=== PATIENT | male | born 1980 | race Caucasian/White ===

== ENCOUNTER 2020-11-16 19:12 | Emergency (ER) | payer OTHER, SELFPAY ==
[2020-11-16 20:18] VITALS: BP 116/83; PULSE 84; RESP 20; TEMP 36.8; O2SAT 98; BMI 27.4
--- NOTE | 2020-11-16 20:27 | ECG_ITS ---
Test Reason : ANXIOUS Blood Pressure : / mmHG Vent. Rate : 080 BPM Atrial Rate : 080 BPM P-R Int : 122 ms QRS Dur : 112 ms QT Int : 384 ms P-R-T Axes : 050 019 036 degrees QTc Int : 442 ms Normal sinus rhythm with sinus arrhythmia Incomplete right bundle branch block Voltage criteria for left ventricular hypertrophy Abnormal ECG No previous ECGs available Referred By: Generic ED Physician Electronically Signed By:Durga Morgan
--- NOTE | 2020-11-16 21:13 | ED.GENADULT ---
HPI - General Adult General Chief complaint: General Medical Stated complaint: anxious Time Seen by Provider: 11/16/20 21:13 Source: patient Mode of arrival: ambulatory Limitations: no limitations History of Present Illness HPI narrative: Patient history of anxiety been feeling more anxious since 14:00 gas in his stomach hyperactive thinking too much not on medication do not have any psychiatrist patient feels increased stress from his job denies any depression or suicidal ideation Related Data Previous Rx's Medication Instructions Recorded lorazepam [Ativan] 1 mg PO BEDTIME PRN #10 tab 11/16/20 Allergies Allergy/AdvReac Type Severity Reaction Status Date / Time mushroom Allergy Hives Verified 11/16/20 20:17 Review of Systems Review of Systems: Constitutional : No Weight loss, No Fever, No Chills ENT/Mouth : No sore throat, No Rhinorrhea Eyes: No Eye Pain, No Swelling Cardiovascular : No Chest Pain, no palpitations Respiratory : No Cough, No Sputum, no shortness of breath Gastrointestinal : no Nausea, No Vomiting, No Diarrhea, No abdominal Pain, no black stools Genitourinary : No Dysuria, No Urinary Frequency Musculoskeletal : No joint pain, No Myalgias, No Joint Swelling Skin : No Skin Lesions, No rash Neuro : No Weakness, No Numbness, No Dizziness, No Headache Psych : ++Anxiety/Panic, No Depression Heme/Lymph: No Bruising, No Lymphadenopathy Endocrine : No Polyuria, No Polydipsia All other systems reviewed and are negative [facility] Social History Social History Advance Directives: No Advance Directives Information Provided: No Physical Exam Vital Signs: Vital Signs: Last Vital Signs Temp 98.3 F 11/16/20 20:18 Pulse 84 11/16/20 20:18 Resp 20 11/16/20 20:18 BP 116/83 11/16/20 20:18 Pulse Ox 98 11/16/20 20:18 Body Mass Index 27.4 Appearance: Alert. Oriented X3. No acute distress. Anxious Eyes: PERRLA, No Nystagmus ENT: Pharynx normal. Oral Mucosa moist Neck: Normal inspection. Neck supple. CVS: Normal heart rate and rhythm. Pulses normal. Respiratory: No respiratory distress. Equal air entry bilateral, no wheezing/rales/rhonchi Abdomen: Soft and nontender. Bowel sounds are present, no mass palpable, no CVA tenderness Skin: Skin warm and dry. Normal skin color. Normal skin turgor. Extremities: No lower extremity edema. No calf tenderness Neuro: Oriented X 3. No motor deficit. No sensory deficit Medical Decision Making MDM Narrative Medical decision making narrative: Patient with increased anxiety will give him Ativan for anxiety episodes advised to follow with PCP ECG Data Attestation: I personally reviewed and interpreted this ECG as follows: Interpretation: Normal sinus rhythm heart rate 80 beats per minute normal axis normal intervals and no acute ST T wave changes no acute ischemia Discharge Plan Discharge Clinical Impression: Anxiety Patient Disposition: Home, Self-Care Instructions: Anxiety (ED) Additional Instructions: Take medication as advised for anxiety follow with PCP Prescriptions: New lorazepam [Ativan] 1 mg tablet 1 mg PO BEDTIME PRN (Reason: anxiety) Qty: 10 RF: 0 Interventions: ED Discharge Assessment Last Done: 11/16/20 21:58 Discharge Date/Time: 11/16/20 21:59 Print Language: Sinhala
--- NOTE | 2020-11-16 21:25 | PC.NURSE ---
PT RESTING IN STRETCHER IN NAD, EKG OBTAINED PREVIOUSLY. PT AWAITING FOR MD TO EVAL. WILL CONTINUE TO MONITOR PT.
--- NOTE | 2020-11-16 21:44 | PC.NURSE ---
MD AT BEDSIDE FOR EVAL. PT MEDICATED PER EMAR.
[2020-11-16] MEDS: Magnesium Hydrox/Alum Hydrox 30 ML ORAL.SUSP PO (21:50)
== END 2020-11-16 21:59 | disposition home or self-care (01) ==
PROVIDERS: Emergency Provider Internal Medicine
DX: F41.9 Anxiety disorder, unspecified (principal); Z72.89 Other problems related to lifestyle; Z56.6 Other physical and mental strain related to work
CPT/HCPCS: 93005; 99283

== ENCOUNTER 2020-12-05 16:09 | Emergency (ER) | payer OTHER, SELFPAY ==
[2020-12-05 16:24] VITALS: BP 137/83; PULSE 70; RESP 16; TEMP 37.3; O2SAT 98; BMI 29.0
--- NOTE | 2020-12-05 18:38 | ED_ITS ---
HPI - General Adult General Chief complaint: Abdominal Pain Stated complaint: mutiple complaints Time Seen by Provider: 12/05/20 18:38 Source: patient, family and RN notes reviewed Mode of arrival: ambulatory Limitations: language barrier History of Present Illness HPI narrative: 40-year-old male with complaints of abdominal discomfort. Patient reports that the pain started about 3 hours ago prior to coming to the ER. Patient reports of diffuse abdominal pain negative for nausea, vomiting, diarrhea. Patient reports that he had a bowel movement this morning and had blood when he wiped. Patient reports that he has a history of hemorrhoids. He reports that he has been dealing with constipation for very long time. Does not have a PCP. Patient reports that he has been feeling very anxious since the pain started. Patient denies any other GI symptoms. Denies any CP, palpitations, presyncope, syncope. Related Data Previous Rx's Medication Instructions Recorded lorazepam [Ativan] 1 mg PO BEDTIME PRN #10 tab 11/16/20 hydrocortisone [Procto-Med HC] 1 appl SD DAILY PRN #30 g 12/05/20 lorazepam 0.5 mg PO BEDTIME PRN #5 tab 12/05/20 polyethylene glycol 3350 [Miralax] 17 g PO DAILY #238 g 12/05/20 Allergies Allergy/AdvReac Type Severity Reaction Status Date / Time mushroom Allergy Hives Verified 11/16/20 20:17 Review of Systems Review of Systems: Constitutional : No Weight loss, No Fever, No Chills, No Ni ght Sweats, No Fatigue, No Malaise ENT/Mouth : No Hearing loss, No Ear Pain, No Nasal Congestion, No Sinus Pain, No Hoarseness, No sore throat, No Rhinorrhea, No Swallowing Difficulty Eyes: No Eye Pain, No Swelling, No Redness, No Foreign Body, No Discharge, No Vision Changes Cardiovascular : No Chest Pain, No SOB, No Dyspnea on Exertion, No Orthopnea, No Edema, No Palpitations Respiratory : No Cough, No Sputum, No Wheezing, No Smoke Exposure, No Dyspnea Gastrointestinal : No Nausea, No Vomiting, No Diarrhea, No Constipation, No abdominal Pain, No Hematochezia, No Melena Genitourinary : no irregular bleeding, No Dysuria, No Urinary Frequency, No Hematuria, No Urinary Incontinence, No Urgency, No Flank Pain, No Urinary Flow Changes, No Hesitancy Musculoskeletal : No joint pain, No Myalgias, No Joint Swelling Skin : No Skin Lesions, No rash Neuro : No Weakness, No Numbness, No Paresthesias, No Loss of Consciousness, No Dizziness, No Headache Psych : No Anxiety/Panic, No Depression, No SI/HI/AH/VH, No Social Issues, Heme/Lymph: No Bruising, No Bleeding,No Lymphadenopathy Endocrine : No Polyuria, No Polydipsia, No Temperature Intolerance Yes all oth er systems are reviewed and are negative PMFSH Social History Social History Patient Tobacco Use Status: Never used Tobacco Use of substances other than those prescribed or required for medical reasons: No Advance Directives: No Advance Directives Information Provided: Yes Physical Exam Vital Signs: Vital Signs: Last Vital Signs Temp 98.8 F 12/05/20 19:14 Pulse 58 12/05/20 21:48 Resp 17 12/05/20 21:48 BP 122/82 12/05/20 21:48 Pulse Ox 98 12/05/20 21:48 Body Mass Index 29.0 Const: General: healthy appearing, no acute distress and well developed Nutritional Appearance: well nourished Orientation/consciousness: patient oriented x3 Neck: Neck: Yes normal visual inspection, Yes full ROM and Yes trachea midline Thyroid: Thyroid normal Resp: Auscultation: clear to auscultation bilaterally Cardio: Rate: regular rate Rhythm: regular rhythm GI: Inspection: Yes normal to inspection and No distended Palpation (GI): No hepatosplenomegaly present Auscultation: normal bowel sounds Skin: General skin exam: elasticity normal, turgor normal and dry skin Neuro: General: patient oriented x3 Course Course Course Narrative: 40-year-old male presents to emergency room for complaints of abdominal discomfort. Patient reports that the pain is diffuse and throughout the whole abdomen. Patient reports that he had blood when he wipes after having stool this morning. Patient has a history of hemorrhoids. Patient reported that he is very anxious because he gets those abdominal pains frequently. Patient reports that he does have a history of constipation. We will do basic lab work CBC to check for leukocytosis or anemia. CMP and lipase. I will give him GI cocktail and re-evaluate. Reevaluation(s) Reevaluation #1: Patient reports he is feeling much better after getting GI cocktail. Feeling little anxious about his symptoms. Will give him Ativan. Patient was encouraged to call to get a primary care provider. Reevaluation #2: Patient reports he is feeling much better he will be discharged home to follow-up with primary care physician. I will send him home with MiraLax and Anusol. I was send him home with 5 days worth of lorazepam. Patient verbalizes understanding and is agreeable to plan of care. He was given the opportunity to ask questions and all questions answered. Medical Decision Making Lab Data Result diagrams: 12/05/20 19:23 12/05/20 19:23 Labs: Lab Results 12/05/20 12/05/20 Range/Units 19:23 19:23 WBC 8.0 (4.8-10.8) X10*3/uL RBC 4.90 (4.60-5.80) X10*6/uL Hgb 15.0 (14.0-18.0) g/dl Hct 42.8 (42-52) % MCV 87.3 (80-98) fL MCH 30.6 (27.0-33.0) pg MCHC 35.0 (31.0-36.0) g/dl RDW 12.7 (11.0-16.0) % Plt Count 260 (160-400) X10*3/uL MPV 9.7 (9.4-12.4) fL Immature Gran % (Auto) 0.3 (0.0-0.4) % Neut % (Auto) 87.2 H (45-73) % Lymph % (Auto) 8.6 L (20-40) % [place] % (Auto) 3.8 (2-11) % Eos % (Auto) 0.0 (0-4) % Baso % (Auto) 0.1 (0-2) % Lymph # (Auto) 0.7 L (1.2-4.9) X10*3/uL [place] # (Auto) 0.3 (0.1-1.2) X10*3/uL Eos # (Auto) 0.0 (0.0-0.4) X10*3/uL Baso # (Auto) 0.0 (0.0-0.2) X10*3/uL Abs Immat Gran (auto) 0.02 (0.00-0.03) X10*3/uL Absolute Neuts (auto) 7.0 (2.0-8.3) X10*3/uL Absolute Nucleated RBC 0.000 (0.0-0.012) X10*3/uL Nucleated RBC % (auto) 0.0 (0.0-0.2) /100WBC Sodium 138 (135-145) mmol/L Potassium 4.3 (3.3-5.1) mmol/L Chloride 103 (96-108) mmol/L Carbon Dioxide 26 (22-29) mmol/L Anion Gap 13 (12-20) BUN 16 (9-16) mg/dL Creatinine 0.86 (0.5-1.4) mg/dL Estim Creat Clear Calc 112.2 Estimated GFR > 60 Random Glucose 131 H (60-115) mg/dL Calcium 9.7 (8.4-10.2) mg/dL Total Bilirubin 1.1 H (0.0-1.0) mg/dL AST 23 (5-37) U/L ALT 26 (0-40) U/L Alkaline Phosphatase 71 (39-117) U/L Total Protein 8.1 H (6.5-8.0) g/dL Albumin 4.8 (3.5-5.0) g/dL Lipase 9 (8-78) U/L Discharge Plan Discharge Clinical Impression: Constipation Patient Disposition: Home, Self-Care Instructions: Constipation (ED), Abdominal Pain (ED) Additional Instructions: Lo vieron aqu? hoy por molestias abdominales. Todo cruz trabajo de laboratorio es negativo para cualquier anormalidad. Aseg?rese de aumentar la fibra en cruz dieta y de robert un suplemento de fibra adicional para vaciar kristina intestinos. Debe robert un suplemento de fibra todos los d?as. Busque un proveedor de atenci?n primaria para que pueda hacer un seguimiento con Gastroenterolog?a para otras citas. Se le lida? un mendez?n para Ativan brady unos d?as. Regrese al dep artamento de emergencias si kristina s?ntomas empeoran o si experimenta alg?n s?ntoma adicional preocupante. Prescriptions: New lorazepam 0.5 mg tablet 0.5 mg PO BEDTIME PRN (Reason: anxiety) Qty: 5 RF: 0 polyethylene glycol 3350 [Miralax] 17 gram/dose powder 17 g PO DAILY Qty: 238 RF: 0 hydrocortisone [Procto-Med HC] 2.5 % cream with perineal applicator 1 appl SD DAILY PRN (Reason: hemorrhoids) Qty: 30 RF: 0 No Action lorazepam [Ativan] 1 mg tablet 1 mg PO BEDTIME PRN (Reason: anxiety) Qty: 10 RF: 0 Stand Alone Forms: Work/School Release Interventions: ED Discharge Assessment Last Done: 12/05/20 23:03 Discharge Date/Time: 12/05/20 23:05
[2020-12-05 19:14] VITALS: BP 151/78; PULSE 63; RESP 19; TEMP 37.1; O2SAT 99
[2020-12-05 19:29] LABS: MANUAL DIFF FLAG NO
[2020-12-05 19:37] LABS: Basophils Percent Auto 0.1 % (0-2); Hematocrit 42.8 % (42-52); Imm Gran Abs Auto 0.02 X10*3/uL (0.00-0.03); Imm Gran Pct Auto 0.3 % (0.0-0.4); Lymphocytes Absolute Auto 0.7 X10*3/uL (1.2-4.9); Lymphocytes Percent Auto 8.6 % (20-40); Mean Corpuscular Hemoglobin 30.6 pg (27.0-33.0); Mean Corpuscular Volume 87.3 fL (80-98); Mean Platelet Volume 9.7 fL (9.4-12.4); Monocytes Absolute Auto 0.3 X10*3/uL (0.1-1.2); Monocytes Percent Auto 3.8 % (2-11); Neutrophils Percent Auto 87.2 % (45-73); Platelet Count 260 X10*3/uL (160-400); Red Cell Distribution Width 12.7 % (11.0-16.0)
[2020-12-05 19:58] LABS: Alanine Aminotransferase 26 U/L (0-40); Albumin Level 4.8 g/dL (3.5-5.0); Alkaline Phosphatase 71 U/L (39-117); Anion Gap 13 (12-20); Aspartate Amino Transferase 23 U/L (5-37); Bilirubin Total 1.1 mg/dL (0.0-1.0); Blood Urea Nitrogen 16 mg/dL (9-16); Calcium 9.7 mg/dL (8.4-10.2); Carbon Dioxide 26 mmol/L (22-29); Chloride 103 mmol/L (96-108); Creatinine Clr Calc Pharmacy 112.2; Estimated Glomerular Filt Rate > 60; Glucose Random 131 mg/dL (60-115); Lipase 9 U/L (8-78); Potassium 4.3 mmol/L (3.3-5.1); Sodium 138 mmol/L (135-145); Total Protein 8.1 g/dL (6.5-8.0)
[2020-12-05 20:00] VITALS: BP 134/76; PULSE 65; RESP 20; O2SAT 99
[2020-12-05] MEDS: PHENobarb/Hyoscy/Atropine/Scop 10 ML ELIXIR PO (20:00)
[2020-12-05] MEDS: Lidocaine HCl Viscous 2 % 15 ML SOLUTION MUCOUS MEM (20:01)
[2020-12-05] MEDS: Magnesium Hydrox/Alum Hydrox 30 ML ORAL.SUSP 15 ML PO (20:01)
[2020-12-05 21:48] VITALS: BP 122/82; PULSE 58; RESP 17; O2SAT 98
[2020-12-05] MEDS: LORazepam 0.5 MG TABLET PO (21:49)
== END 2020-12-05 23:05 | disposition home or self-care (01) ==
PROVIDERS: Nurse Practitioner Family; Emergency Provider Internal Medicine
DX: K59.00 Constipation, unspecified (principal)
CPT/HCPCS: 36415; 80053; 83690; 85025; 99283; 99285

== ENCOUNTER 2021-01-23 09:28 | Outpatient (REF) | payer OTHER, SELFPAY ==
[2021-01-23 10:59] LABS: Hematocrit 40.5 % (42-52); Hemoglobin 13.8 g/dl (14.0-18.0); Mean Corpuscular HGB Conc 34.1 g/dl (31.0-36.0); Mean Corpuscular Hemoglobin 30.6 pg (27.0-33.0); Mean Corpuscular Volume 89.8 fL (80-98); Mean Platelet Volume 11.1 fL (9.4-12.4); Platelet Count 237 X10*3/uL (160-400); Red Blood Count 4.51 X10*6/uL (4.60-5.80); Red Cell Distribution Width 12.5 % (11.0-16.0); White Blood Count 3.9 X10*3/uL (4.8-10.8)
[2021-01-23 11:06] LABS: Estimated Average Glucose 97 mg/dL
[2021-01-23 11:21] LABS: Anion Gap 13 (12-20); Blood Urea Nitrogen 18 mg/dL (9-16); Calcium 9.2 mg/dL (8.4-10.2); Carbon Dioxide 27 mmol/L (22-29); Chloride 103 mmol/L (96-108); Estimated Glomerular Filt Rate > 60; Glucose Random 91 mg/dL (60-115); Potassium 4.1 mmol/L (3.3-5.1); Sodium 139 mmol/L (135-145)
[2021-01-23 14:20] LABS: CT PCR NOT DETECTED (Not Detect.); NG PCR NOT DETECTED (Not Detect.)
[2021-01-25 03:34] LABS: Syphilis Screen Nonreactive (Nonreactive)
[2021-01-25 03:38] LABS: ~HepC Num1 0.17 S/CO (0.00-0.79); ~Hepatitis C Antibody Nonreactive (Nonreactive)
[2021-01-25 03:39] LABS: HBsAGNum1 0.22 S/CO (0.00-0.99); Hepatitis B Surface Antigen Negative (Negative)
[2021-01-25 03:49] LABS: ~Hepatitis B Surface Antibody NONREACTIVE (Nonreactive)
== END 2021-01-23 09:29 | disposition home or self-care (01) ==
LOC: HO.LAB 09:28
PROVIDERS: PCP Family Medicine; Visit Provider Family Medicine
DX: Z00.00 Encounter for general adult medical examination without abnormal findings (principal); Z11.59 Encounter for screening for other viral diseases; Z11.3 Encounter for screening for infections with a predominantly sexual mode of transmission; K29.70 Gastritis, unspecified, without bleeding
CPT/HCPCS: 80048; 83036; 85027; 86706; 86780; 86803; 87340; 87491; 87591

== ENCOUNTER 2021-01-25 12:29 | Outpatient (REF) | payer OTHER, SELFPAY | END 2021-01-25 12:30 | disposition home or self-care (01) | LOC: HO.LNP 12:29 | PROVIDERS: Visit Provider Family Medicine | DX: K29.70 Gastritis, unspecified, without bleeding (principal) | CPT/HCPCS: 87338 ==

== ENCOUNTER → 2021-09-01 12:37 | Outpatient (REF) | payer OTHER, SELFPAY ==
--- NOTE | 2021-09-01 | ECG_ITS ---
Hook-up date: 2021-09-01 11:52:00 Duration: 43:38:00 Test Indications: DIZZINESS Medications: 25257 QRS complexes * Ventricular ectopics which represent % of total QRS comp. 1 Supraventricular ectopics which represent <1 % of total QRS comp. * Paced QRS complexs which represent % of total QRS comp. VENTRICULAR ECTOPY * Isolated * Bigeminal Cycles * Couplets * Runs * Beats in Runs * Beats LONGEST at * BPM at :: -- * Beats FASTEST at * BPM at :: -- SUPRAVENTRICULAR ECTOPY 1 Isolated 0 Couplets 0 Runs 0 Beats in Runs * Beats LONGEST at * BPM at :: -- * Beats FASTEST at * BPM at :: -- HEART RATES 41 MIN at 21:29:52 2021-09-01 67 AVG 132 MAX at 14:36:24 2021-09-01 LONGEST RR 1.8640 secs at 02:07:31 2021-09-02 S-T LEVELS Channel 1 - 128 mm at 11:52:00 2021-09-01 - 128 mm at 11:52:00 2021-09-01 Channel 2 - 128 mm at 11:52:00 2021-09-01 - 128 mm at 11:52:00 2021-09-01 Channel 3 - 128 mm at 03:11:11 -- - 128 mm at 03:11:11 Basic rhythm Normal sinus rhythm No long pause or profound bradycardia Frequent Sinus bradycardia , 40 % of time HR < 60 bpm No diary submitted Referred By: Kaci Live Overread By: LUIS TRONCOSO MD
== END ==
LOC: HO.CARD 12:37
PROVIDERS: PCP Family Medicine; Visit Provider Family Medicine
DX: R42 Dizziness and giddiness (principal)
CPT/HCPCS: 93225; 93226

== ENCOUNTER 2021-09-08 15:37 | Outpatient (REF) | payer OTHER, SELFPAY ==
--- NOTE | ~2021-09-08 | XR_ITS ---
EXAMINATION: PRE-MRI SKULL. CLINICAL INFORMATION: Trauma. Rule out foreign body. COMPARISON: None TECHNIQUE: 3 views. FINDINGS: There is no radiopaque foreign body seen in the orbits or the skull. The paranasal sinuses are well-aerated. The mastoid sinuses are well-aerated. XR/XR pre mri screening IMPRESSION: Unremarkable skull exam.
--- NOTE | ~2021-09-08 | MR_ITS ---
EXAMINATION: MRI BRAIN WITHOUT CONTRAST CLINICAL INFORMATION: Diplopia. COMPARISON: No relevant prior imaging. TECHNIQUE: Multiplanar MR imaging of the brain was performed without contrast. FINDINGS: There is no intracranial mass effect or midline shift. No abnormal extra-axial collection. Lateral and third ventricles are normal. No hydrocephalus. Midline structures including the cervicomedullary junction are normal. No acute bone marrow signal changes. There is no acute territorial infarct. No pathological magnetic susceptibility artifact. Intracranial vascular flow voids are maintained. There is a trace right mastoid tip effusion. Mild paranasal sinus disease primarily affecting the ethmoid air cells and the alveolar recesses of the maxillary sinuses. Globes and orbits are symmetric. MR/MR head/brain wo con IMPRESSION: Normal brain MRI.
== END 2021-09-08 15:38 | disposition home or self-care (01) ==
LOC: HO.MRI 15:37
PROVIDERS: PCP Family Medicine; Visit Provider Psychiatry & Neurology Neurology
DX: H53.2 Diplopia (principal)
CPT/HCPCS: 70551

== ENCOUNTER → 2021-09-23 10:00 | Outpatient (BNVA) | payer OTHER, SELFPAY | PROVIDERS: PCP Family Medicine; Referring Provider Family Medicine; Visit Provider Physician Assistant | DX: K59.09 Other constipation (principal); K21.9 Gastro-esophageal reflux disease without esophagitis; Z80.0 Family history of malignant neoplasm of digestive organs; Z91.018 Allergy to other foods; Z79.899 Other long term (current) drug therapy | CPT/HCPCS: 99202 ==

== ENCOUNTER 2022-01-06 06:53 | Day surgery (SDC) | payer OTHER, SELFPAY ==
[2021-12-31 13:05] VITALS: BMI 27.1
--- NOTE | 2022-01-05 08:46 | HO.ANESPROP2 ---
Documented by User: Dafne Nazario NP 01/05/22 08:47 HPI - Anesthesia Eval Consult details Narrative: 41yo M for Colonoscopy PMFSH Active Problems Active Problems: All Active Problems (Updated 09/23/21 @ 12:40 by Meggan Hicks PA-C) Chronic constipation (Acute) Acid reflux (Acute) Family history of colon cancer requiring screening colonoscopy (Acute) Family History Family History Mother Diabetes Brother Cancer, Onset Age: 43 Surgical History Surgical History (Updated 01/06/22 @ 08:34 by April Bauer MD) H/O tooth extraction History of surgery of head Hx of knee surgery Social History Social History Household Members Other:: daughter and Alcohol intake: current Patient Tobacco Use Status: Never used Tobacco Are you DNR?: No Advance Directives: No Advance Directives Information Provided: Yes Current occupational status: employed Meds Allergies Allergy/AdvReac Type Severity Reaction Status Date / Time mushroom Allergy Hives Verified 09/23/21 10:26 Home Medications Medication Instructions Recorded Confirmed Last Taken Type pantoprazole 40 mg tablet,delayed 40 mg PO DAILY 09/23/21 Unknown History release sennosides 8.6 mg tablet (senna) 17.2 mg PO DAILY 09/23/21 Unknown History Exam Exam Date and Time: January 05, 2022 0846 Height,Weight and Vital Signs: Height 5 ft 6 in Weight 76.204 kg Assessment and Plan Assessment Anesthesia Assessment: Chart Reviewed Documented by User: April Bauer MD 01/06/22 08:36 PMFSH Family History Family History Mother Diabetes Brother Cancer, Onset Age: 43 Family history of problems with anesthesia: No Surgical History Surgical History (Updated 01/06/22 @ 08:34 by April Bauer MD) H/O tooth extraction History of surgery of head Hx of knee surgery History of Problems with Anesthesia: No Social History Social History Household Members Other:: daughter and Alcohol intake: current Patient Tobacco Use Status: Never used Tobacco Are you DNR?: No Advance Directives: No Advance Directives Information Provided: Yes Current occupational status: employed Meds Allergies Allergy/AdvReac Type Severity Reaction Status Date / Time mushroom Allergy Hives Verified 09/23/21 10:26 Home Medications Medication Instructions Recorded Confirmed Last Taken Type pantoprazole 40 mg tablet,delayed 40 mg PO DAILY 09/23/21 Unknown History release sennosides 8.6 mg tablet (senna) 17.2 mg PO DAILY 09/23/21 Unknown History Exam Height,Weight and Vital Signs: Height 5 ft 6 in Weight 76.204 kg Vital Signs Temp Pulse Resp BP Pulse Ox O2 Del Method 01/06/22 07:43 97.6 F 62 16 124/81 99 Room Air Airway Mallampati Class: I TM Dist: >3cm Neck ROM: Full Loose/Missing/Broken Teeth: Yes (Missing molars 1 right lower, 1 left upper. Denies broken or loose teeth) Heart: RRR Lungs: CTAB Assessment and Plan Final Anesthetic Review Family History of Problems with Anesthesia: No History of Problems with Anesthesia: No NPO: Yes ASA Class: II Final Preanesthetic Review: No Changes in Pt Med Stat, Meds/Allgs Chart Reviewed, Consent Obtained/Reviewed and Anes Risks/Benef Reviewed Patient Risk: Low Procedure Risk: Low Assessment/Block/Sedation in SS: Assess/Block/Sedation-SS Anesthetic Plan Anesthetic Plan: MAC: Disposition: Standard PACU
[2022-01-06] MEDS: Lactated Ringers 1,000 ML 100 ML IVCONT (07:17)
[2022-01-06 07:24] VITALS: BMI 26.4
[2022-01-06] MEDS: Sodium Phosphate,Mono-Dibasic 133 ML ENEMA PR (07:40)
[2022-01-06 07:43] VITALS: BP 124/81; PULSE 62; RESP 16; TEMP 36.4; O2SAT 99
--- NOTE | 2022-01-06 08:31 | MHC.SHP ---
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 Details of Present Illness: FH of colon cancer, brother Relevant Social History: None Present Medications: see Short Stay Collaborative assessment Medical History: Significant History (Chronic constipation (Acute) Acid reflux Family history of colon cancer requiring screening colonoscopy) History of Previous Operations: Relevant previous surgery/procedure and date(s) (H/O tooth extraction History of surgery of head Hx of knee surgery) Allergies: Allergies Allergy/AdvReac Type Severity Reaction Status Date / Time mushroom Allergy Hives Verified 09/23/21 10:26 Review of Systems Sugical H&P ROS: Negative: Constitution, Cardiovascular, Respiratory, Neurological, Psychiatric, Hem-Onc, Allergic/Immunologic, Gastrointestinal, Genitourinary, Musculoskeletal, Integumentary, Endocrine and Eyes/Ears/Nose/Throat Exam Surgical H&P Exam: Normal: HEENT, Normal: Heart, Normal: Lungs, Normal: Extremities, Normal: Abdomen, Normal: Skin and Normal: Neurological Plan Diagnosis/Plan: Unchanged I have reviewed the history and physical and performed a pertinent physical examination on my patient. No changes have occurred unless specified.
--- NOTE | 2022-01-06 08:40 | P.OP_ITS ---
Operative Note Operative Note Date of Service: 01/06/22 Narrative: Operative Information Procedure Description: Colonoscopy Indication: FH of CRC, high risk screening Anesthesia: MAC COLONOSCOPY Instrument: Olympus variable stiffness pediatric scope 190L Colonoscopy Monitoring: Vital signs and clinical assessment, continuous EKG monitoring, Pulse oximetry, Carbon Dioxide monitoring and blood pressure monitoring were done throughout the procedure. Colon withdrawal time was 13 minutes. Procedure: The patient was placed in the left lateral decubitis position and pre-procedure medications were administered. After a digital rectal examination of the ano-rectum, the video colonoscope was inserted into the rectum and advanced through the colon to the cecum/TI. The colonoscope was slowly withdrawn in a retrograde panoramic fashion and the colon mucosa was carefully examined including a retroflexed view of the rectum. Findings and interventions are described below. Procedure Difficulty: easy Findings: Terminal Ileum-normal Right sided retroflexion -normal Cecum:normal Ascending Colon: 6-8 mm sessile polyp removed with cold snare Transverse Colon -normal Descending Colon:normal Sigmoid Colon: normal Rectum: Retroflexion with small inflammed internal hemorrhoids, grade I Anorectum - normal Colon preparation: [place] Bowel Preparation Scale Right colon; 2 Transverse colon: 1-2 Left colon; 1-2 (0 = Unprepared colon segment with mucosa not seen due to solid stool that cannot be cleared. 1 = Portion of mucosa of the colon segment seen, but other areas of the colon segment not well seen due to staining, residual stool and/or opaque liquid. 2 = Minor amount of residual staining, small fragments of stool and/or opaque liquid, but mucosa of colon segment seen well. 3 = Entire mucosa of colon segment seen well with no residual staining, small fragments of stool or opaque liquid) Impression and Post Procedure Diagnosis: polyp internal hemorrhoids Plan: High fiber diet leaflet Avoid straining at stool, epsom salts and sitz bath, anusol supps or cream Repeat Colonoscopy in 1 year due to prep or earlier if clinically indicated--next time follow diet instructions Above findings were reviewed with the patient and relevant handouts were provided if indicated.
[2022-01-06 09:27] VITALS: BP 96/60; PULSE 72; RESP 16; TEMP 36.2; O2SAT 98
[2022-01-06 09:41] VITALS: BP 110/70; PULSE 71; RESP 16; O2SAT 100
[2022-01-06 09:54] VITALS: BP 114/81; PULSE 68; RESP 16; TEMP 36.2; O2SAT 99
--- NOTE | 2022-01-06 10:25 | PC.NURSE ---
PATIENT STATES FEELING DIZZY WHEN OUT OF PACU. PT ORIGINALLY REFUSED FOOD, DRINK, BUT CHANGED HIS MIND AFTER APPROX [address] CHOE ASSESSED PATIENT PRIOR TO HIS DEPARTURE AND PATIENT STATED FEELING MUCH BETTER. BP 131/77, HR 66, T 98.1 IN DC AREA. PT'S COLOR PRIOR TO DISCHARGE.
== END 2022-01-06 10:28 | disposition home or self-care (01) ==
PROVIDERS: PCP Family Medicine; Visit Provider Internal Medicine Gastroenterology
PROC: 0DJD8ZZ Inspection of Lower Intestinal Tract, Via Natural or Artificial Opening Endoscopic (ICD-10-PCS; CPT 45378; principal; 2022-01-06 08:30)
DX: Z12.11 Encounter for screening for malignant neoplasm of colon (principal); Z80.0 Family history of malignant neoplasm of digestive organs; D12.2 Benign neoplasm of ascending colon; K64.0 First degree hemorrhoids; K59.09 Other constipation; K21.9 Gastro-esophageal reflux disease without esophagitis; Z79.899 Other long term (current) drug therapy; Z98.890 Other specified postprocedural states
CPT/HCPCS: 45385; 88305; J2250

== ENCOUNTER → 2022-02-08 08:50 | Outpatient (BNVA) | payer OTHER, SELFPAY | PROVIDERS: PCP Family Medicine; Visit Provider Physician Assistant | DX: K21.9 Gastro-esophageal reflux disease without esophagitis (principal); D36.9 Benign neoplasm, unspecified site; K64.9 Unspecified hemorrhoids; Z98.890 Other specified postprocedural states; Z80.0 Family history of malignant neoplasm of digestive organs; Z79.899 Other long term (current) drug therapy | CPT/HCPCS: 99212 ==